=== PATIENT | male | born 1990 | race Caucasian/White ===

== ENCOUNTER 2017-09-01 13:22 | Emergency (ER) | payer OTHER ==
[~2017-09-01] VITALS: Ht 172.7 cm; Wt 72.7 kg
[2017-09-01 13:32] VITALS: BP 119/63
== END 2017-09-01 16:22 | disposition home or self-care (01) ==
LOC: EMS 13:25
DX: Z48.02 Encounter for removal of sutures (principal)
CPT/HCPCS: 99281